=== PATIENT | female | born 1970 | race Caucasian/White ===

== ENCOUNTER 2023-10-09 18:22 | Emergency (ER) | payer OTHER ==
[~2023-10-09] VITALS: Ht 167.6 cm; Wt 138.6 kg
[2023-10-09 18:26] VITALS: TEMP 97.5
[2023-10-09] MEDS ORDERED: NS 1,000 ML IV ONE (18:45)
[2023-10-09] MEDS ORDERED: Ondansetron 4 MG/2 ML VIAL IV ONE (18:45)
[2023-10-09 18:55] LABS: BASO # 0.1 K/mm3 (0.0-0.2); BASO % 0.6 % (0.0-2.0); EOS # 0.1 K/mm3 (0.0-0.7); EOS % 1.1 % (0.0-4.0); GRAN # 5.5 K/mm3 (1.4-6.5); GRAN % 69.5 % (42.2-75.2); HEMATOCRIT 41.4 % (37.0-47.0); HEMOGLOBIN 13.7 g/dl (12.5-16.0); LYMPH # 1.8 K/mm3 (1.2-3.4); LYMPH % 22.4 % (20.0-51.0); MEAN CELL VOLUME 88 fl (80.0-100.0); MEAN CORPUSCULAR HEMOGLOBIN 29 pg (27-31); MEAN CORPUSCULAR HGB CONC 33 g/dl (33.0-37.0); MEAN PLATELET VOLUME 10.1 fl (7.4-10.4); MONO # 0.5 K/mm3 (0.1-0.6); PLATELET COUNT 241 K/mm3 (130-400); RED BLOOD COUNT 4.73 M/mm3 (4.10-5.30); REDCELL DISTRIBUTION WIDTH-CV 13.3 % (11.5-14.5)
[2023-10-09 19:14] LABS: ALBUMIN 3.9 g/dL (3.5-5.0); BILIRUBIN,TOTAL 0.3 mg/dL (0.2-1.2); CALCIUM 9.4 mg/dL (8.4-10.2); CREATININE, serum 0.85 mg/dL (0.57-1.11); POTASSIUM 3.7 mEq/L (3.5-4.5); TOTAL PROTEIN 7.6 g/dl (6.2-8.1)
[2023-10-09] MEDS ORDERED: Ketorolac 15 MG/ML VIAL IV ONE (20:30)
[2023-10-09 21:40] VITALS: BP 112/66; PULSE 73
== END 2023-10-09 22:00 | disposition home or self-care (01) ==
LOC: COL.ER 18:22
PROVIDERS: Emergency Medicine
DX: G43.909 Migraine, unspecified, not intractable, without status migrainosus (principal)
CPT/HCPCS: J1885; J2405; J2765; J7030

== ENCOUNTER → 2023-11-04 | Outpatient (CLI) | payer OTHER | LOC: COL.RAD 08:30 | DX: R51.9 Headache, unspecified (principal); I10 Essential (primary) hypertension; G44.52 New daily persistent headache (NDPH) ==